=== PATIENT | female | born 1955 | race Caucasian/White ===

== ENCOUNTER 2016-10-17 20:20 | Emergency (ER) | payer MEDICARE, MEDICAID ==
[~2016-10-17] VITALS: Ht 154.9 cm; Wt 62.6 kg
[2016-10-17] MEDS ORDERED: RISP1TAB7 (21:02)
[2016-10-17] MEDS ORDERED: ARIP5TAB10 (21:02)
[2016-10-17] MEDS ORDERED: HYDROCODONE/APAP 5-325MG TABLET PO ONE (22:00)
[2016-10-17] MEDS ORDERED: HYDROCODONE/APAP 5-325MG TABLET ONE (22:12)
[2016-10-17] MEDS ORDERED: CEPHALEXIN MONOHYDRATE 500 MG CAPSULE PO ONE (22:30)
--- NOTE | 2016-10-17 22:40 | NUR ---
Patient discharged to home in stable conditon. Written and verbal after care instructions given. Patient verbalizes understanding of instructions.
[2016-10-17] MEDS ORDERED: CEPHALEXIN MONOHYDRATE 500 MG CAPSULE ONE (22:51)
== END 2016-10-17 22:43 | disposition home or self-care (01) ==
LOC: ER 20:20
DX: S61.215A Laceration without foreign body of left ring finger without damage to nail, initial encounter (principal); S61.213A Laceration without foreign body of left middle finger without damage to nail, initial encounter; M79.7 Fibromyalgia; Z88.1 Allergy status to other antibiotic agents; Z88.2 Allergy status to sulfonamides; F17.200 Nicotine dependence, unspecified, uncomplicated; W23.0XXA Caught, crushed, jammed, or pinched between moving objects, initial encounter; Y93.89 Activity, other specified; Y92.9 Unspecified place or not applicable; Y99.9 Unspecified external cause status
CPT/HCPCS: 12001; 73130; 99284; A4217; A4663

== ENCOUNTER 2016-10-23 07:36 | Emergency (ER) | payer MEDICARE, MEDICAID ==
[~2016-10-23] VITALS: Ht 154.9 cm; Wt 62.6 kg
[~2016-10-23 07:36] MED LIST: ARIP5TAB10; RISP1TAB7
--- NOTE | 2016-10-23 09:01 | NUR ---
Box Nailer contacted per TIEN, ETA 15 min.
--- NOTE | 2016-10-23 09:14 | NUR ---
hot iron worker at bedside.
[2016-10-23] MEDS: MORPHINE SULFATE 4 MG/1 ML DISP.SYRIN IM ONE (09:16)
[2016-10-23] MEDS: ONDANSETRON ODT 4 MG TAB.RAPDIS SL ONE (09:18)
[2016-10-23] MEDS: CLINDAMYCIN HCL 150 MG CAPSULE PO ONE (09:18)
[2016-10-23] MEDS: NEOMY/BACITRA/POLYMYXIN B OINT UD PACKET TP ONE (09:19)
[2016-10-23] MEDS ORDERED: ONDANSETRON ODT 4 MG TAB.RAPDIS ONE (09:22)
[2016-10-23] MEDS ORDERED: CLINDAMYCIN HCL 300 MG CAPSULE ONE (09:23)
[2016-10-23] MEDS ORDERED: MORPHINE SULFATE 4 MG/1 ML DISP.SYRIN ONE (09:23)
[2016-10-23] MEDS ORDERED: NEOMY/BACITRA/POLYMYXIN B OINT UD PACKET TP ONE (09:24)
[2016-10-23] MEDS: LORAZEPAM 0.5 MG TABLET PO ONE (10:42)
[2016-10-23] MEDS ORDERED: LORAZEPAM 0.5 MG TABLET ONE (10:54)
--- NOTE | 2016-10-23 11:49 | NUR ---
Patient given written and verbal discharge instructions. Patient verbalizes understanding of instructions. Patient is ambulatory with steady gait. Refuses offer of detention placement. Patient given list of available shelters in surrounding area. signal worker provided patient with information and referrals.
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
== END 2016-10-23 11:51 | disposition home or self-care (01) ==
LOC: ER 07:36
DX: S61.412A Laceration without foreign body of left hand, initial encounter (principal); L08.9 Local infection of the skin and subcutaneous tissue, unspecified; Z88.2 Allergy status to sulfonamides; Z88.1 Allergy status to other antibiotic agents; F17.200 Nicotine dependence, unspecified, uncomplicated; M54.5 Low back pain; G89.29 Other chronic pain; X58.XXXA Exposure to other specified factors, initial encounter; Y93.89 Activity, other specified; Y92.9 Unspecified place or not applicable; Y99.9 Unspecified external cause status; K21.9 Gastro-esophageal reflux disease without esophagitis
CPT/HCPCS: A4663; J2270; Q0162

== ENCOUNTER 2016-10-25 08:23 | Inpatient (IN) | payer MEDICARE, MEDICAID ==
[~2016-10-25] VITALS: Ht 167.6 cm; Wt 70.8 kg
[~2016-10-25 08:23] MED LIST changes: -RISP1TAB7
--- NOTE | 2016-10-25 08:43 | NUR ---
pt came to er requestinhg wheel chair at the door, co chronic back pain , uuncontrolled. pt said took own pain med at home. pt with slighly slurred speech and left hand weaker than right hand. pt did not realize this weakness and does not know when it started. pt also says that she has been home less latrely and cannot live like this any more and is requesting for some sort of placement.
[2016-10-25] MEDS ORDERED: CLON1TAB PO (08:49)
[2016-10-25] MEDS ORDERED: HYDR-3326 PO (08:49)
[2016-10-25] MEDS ORDERED: OMEP20TA20 PO (08:49)
[2016-10-25] MEDS ORDERED: HYDROCODONE/APAP 10-325 MG TABLET PO ONE (09:45)
[2016-10-25] MEDS ORDERED: HYDROCODONE/APAP 10-325 MG TABLET ONE (10:14)
[2016-10-25 10:37] LABS: BILIRUBIN,DIRECT 0.1 mg/dL (0.0-0.2); BILIRUBIN,TOTAL 0.3 mg/dL (0.2-1.0); CREATININE 0.6 mg/dL (0.6-1.3); POTASSIUM 4.1 mmol/L (3.5-5.1); TOTAL PROTEIN, SERUM 6.9 g/dL (6.4-8.2)
[2016-10-25 10:41] LABS: BASOPHILS % (AUTO) 0.5 % (0.0-2.0); EOSINOPHILS # (AUTO) 0.2 K/uL (0.0-0.7); EOSINOPHILS % (AUTO) 2.8 % (0.0-7.0); HEMATOCRIT 37.5 % (37-47); HEMOGLOBIN 12.3 G/DL (12.0-16.0); LYMPHOCYTES # (AUTO) 2.7 K/UL (0.8-4.8); LYMPHOCYTES % (AUTO) 35.3 % (20.5-51.5); MEAN CORPUSCULAR HEMOGLOBIN 27.8 UUG (27.0-31.0); MEAN CORPUSCULAR HGB CONC 33 g/dL (32.0-37.0); MEAN CORPUSCULAR VOLUME 84.9 FL (81.0-99.0); MONOCYTES # (AUTO) 0.3 K/UL (0.1-1.30); MONOCYTES % (AUTO) 3.9 % (0.0-11.0); NEUTROPHILS # (AUTO) 4.4 K/UL (1.8-8.9); NEUTROPHILS % (AUTO) 57.5 % (38.5-71.5); PLATELET COUNT (AUTO) 472 K/UL (150-450); RED BLOOD CELL COUNT(AUTO) 4.42 MIL/UL (4.2-5.4); WHITE BLOOD COUNT (AUTO) 7.6 K/UL (4.0-11.2)
[2016-10-25 12:20] LABS: *BILIRUBIN,URIN NEGATIVE (NEGATIVE); *BLOOD, URINE NEGATIVE (NEGATIVE); *CLARITY,URINE CLEAR (CLEAR); *COLOR,URINE LIGHT YELLOW (YELLOW); *KETONES,URINE NEGATIVE (NEGATIVE); *PROTEIN,URINE NEGATIVE (NEGATIVE); *UROBILINOGEN,URINE 0.2 E.U./dl (NORMAL); LEUKOCYTE ESTERASE ,URINE NEGATIVE (NEGATIVE); NITRITE, URINE NEGATIVE (NEGATIVE); UGLUCOSE NEGATIVE (NEGATIVE)
[2016-10-25 12:28] LABS: BACTERIA,URINE NONE SEEN /HPF (NONE SEEN); RBC,URINE 0-3 /HPF (0-3); SQUAMOUS EPITHELIAL CELL,UR FEW /HPF (NONE SEEN); WBC,URINE 0-3 /HPF (0-3)
--- NOTE | 2016-10-25 12:30 | NUR ---
pt transfered to floor in stable condition. pt requesting to talk to a social work lecturer for placement
[2016-10-25 13:30] VITALS: BP 106/81
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
--- NOTE | 2016-10-25 13:32 | NUR ---
PT REFUSING TO HAVE BELONGINGS GONE THROUGH
[2016-10-25] MEDS ORDERED: ZOLPIDEM 5 MG TABLET PO PRN (13:45)
[2016-10-25] MEDS ORDERED: MAGNESIUM HYDROXIDE 30 ML LIQUID UDC PO PRN (13:45)
[2016-10-25] MEDS ORDERED: Z GUARD REMEDY PASTE 57 GM TUBE TOP PRN ×2 (13:45)
[2016-10-25] MEDS ORDERED: ONDANSETRON 4 MG/2 ML VIAL IV PRN ×2 (13:45)
[2016-10-25] MEDS ORDERED: ACETAMINOPHEN 325 MG TABLET PO PRN ×2 (13:45)
[2016-10-25] MEDS: IV D5 1/2 NS 1000 ML 1,000 ML IV PRN (14:44)
[2016-10-25 15:11] VITALS: BP 110/78
--- NOTE | 2016-10-25 17:19 | NUR ---
TOOK PT DINNER TRAY, PT VERY GROGGY. CHECKED IV SITE AND IV WAS DISLODGED. PT STARTING SAYING SORRY OVER AND OVER AND STATED DID NOT KNOW HOW IT HAPPENED. NO BLEEDING NOTED, CLEANED SITE. WILL INSERT NEW IV
--- NOTE | 2016-10-25 17:45 | NUR ---
iv reinserted in right hand G22
[2016-10-25] MEDS: HYDROCODONE/APAP 5-325MG TABLET PO PRN (18:04)
[2016-10-25 20:00] VITALS: BP 106/53
[2016-10-26 05:04] VITALS: BP 118/31
[2016-10-26] MEDS: PANTOPRAZOLE SODIUM 40 MG TABLET.DR PO SCH (06:55)
[2016-10-26] MEDS: IV D5 1/2 NS 1000 ML 1,000 ML IV PRN ×2 (06:57→16:51)
[2016-10-26 07:24] LABS: BILIRUBIN,TOTAL 0.3 mg/dL (0.2-1.0); CREATININE 0.7 mg/dL (0.6-1.3); PHOSPHOROUS 3.1 mg/dL (2.5-4.9); THYROID STIMULATING HORMONE 0.542 mIU/mL (0.358-3.740); TOTAL PROTEIN, SERUM 6.6 g/dL (6.4-8.2)
[2016-10-26 07:25] LABS: BASOPHILS % (AUTO) 0.4 % (0.0-2.0); EOSINOPHILS # (AUTO) 0.2 K/uL (0.0-0.7); EOSINOPHILS % (AUTO) 3.7 % (0.0-7.0); HEMATOCRIT 34.6 % (37-47); HEMOGLOBIN 11.5 G/DL (12.0-16.0); LYMPHOCYTES # (AUTO) 1.9 K/UL (0.8-4.8); LYMPHOCYTES % (AUTO) 42.4 % (20.5-51.5); MEAN CORPUSCULAR HEMOGLOBIN 28.3 UUG (27.0-31.0); MEAN CORPUSCULAR HGB CONC 33 g/dL (32.0-37.0); MEAN CORPUSCULAR VOLUME 85.1 FL (81.0-99.0); MONOCYTES # (AUTO) 0.3 K/UL (0.1-1.30); MONOCYTES % (AUTO) 6.5 % (0.0-11.0); NEUTROPHILS # (AUTO) 2.2 K/UL (1.8-8.9); PLATELET COUNT (AUTO) 456 K/UL (150-450); RED BLOOD CELL COUNT(AUTO) 4.06 MIL/UL (4.2-5.4)
[2016-10-26 07:26] LABS: WHITE BLOOD COUNT (AUTO) 4.6 K/UL (4.0-11.2)
--- NOTE | 2016-10-26 07:43 | NUR ---
patient is awake and comfortable in bed with iv fluids infusion running. complaint of back and leg pain but tolerable. otherwise no other significant interventions seen at this time.
[2016-10-26] MEDS: HYDROCODONE/APAP 5-325MG TABLET PO PRN ×4 (08:07→21:06)
[2016-10-26 08:08] VITALS: BP 108/68
--- NOTE | 2016-10-26 08:10 | NUR ---
patient complaint of back pain 09/22 given [place] as ordered. rechecked bp 108/68 no dizziness. advised on other nursing interventions.
[2016-10-26 09:18] LABS: IRON, SERUM 40 ug/dL (50-175)
[2016-10-26 11:14] VITALS: BP 121/42
[2016-10-26] MEDS: LORAZEPAM 2 MG/1 ML VIAL IV PRN (14:50)
--- NOTE | 2016-10-26 14:56 | NUR ---
PATIENT IS AGITATED AND CRYING OVER ABOUT PERSONAL PROB, GIVEN IV PRN ATIVAN ORDERED.
[2016-10-26 15:28] VITALS: BP 137/77
--- NOTE | 2016-10-26 18:24 | NUR ---
PATIENT IS BECOMING AGITATED, CRYING FOR HIGHER DOSE OF ATIVAN IN PO. PAGED DOCTOR, WAITING FOR REPLY.
[2016-10-26 20:00] VITALS: BP 112/43
--- NOTE | 2016-10-26 20:10 | NUR ---
RECEIVED PT'S A/A/O X4,SITTING AT THE BEDSIDE AND STATED THAT"I REALLY HAVE ANXIETY SO LONG TIME AND I USED TO TAKE ATIVAN 1 MG,I HAVE BEEN WAITING SO LONG TIME.I DON'T WANT MY ANXIETY GETTING WORSE";EDUCATED TO PT AND KEPT COMFORT.CALLED WHO'S MARINE ELECTRICIAN TONIGHT AND LEFT THE MESSAGE WITH EXCHANGED SERVICE AT THIS TIME. AT 20:15 CALLED BACK,I DISCUSSED ABOUT PT'S CONDITION;NEW ORDER'S GIVEN AT THIS TIME:CARRIED IT OUT AND UPDATED THE PLAN OF CARE TO PT;PT VERBALIZED UNDERSTANDING AND COOPERATIVE AND STATED THAT"I FEEL BETTER".KEPT CALL-LIGHT WITHIN REACH.
[2016-10-26] MEDS ORDERED: LORAZEPAM 1 MG TABLET PO ONE ×2 (20:15)
--- NOTE | 2016-10-26 21:25 | NUR ---
PT AMBULATED IN THE HALLWAY FOR 10 MINUTES;STEADY GAIT;DENIED OF ANY DIZZINESS;PER PT STATED THAT"I NEED TO WALK BECAUSE IF I STAY TOO LONG TIME IN BED IT HURT MY BACK",PT WENT BACK TO BED,SNACK'S GIVEN TO PT REQUEST;PT TOLERATED WELL NOTED.MAINTAINED IVF ORDER.KEPT CALL-LIGHT WITHIN REACH.
[2016-10-26] MEDS: ZOLPIDEM 5 MG TABLET PO PRN (21:34)
[2016-10-27] MEDS: HYDROCODONE/APAP 5-325MG TABLET PO PRN ×3 (02:20→17:20)
--- NOTE | 2016-10-27 02:20 | NUR ---
Pt woke up and stated that "my back's killing me",a;so she stated that she wanted something to help her for bowel movement but refuse to get MOM,prune juice's offered to pt at this time,educated to pt if it doesn't help she should get MOM in the morning,pt agreed and tolerated well;[place] 1 tab was given to pt for pain;pt verbalized understanding and tolerated well noted.kept comfort.call-light within reach.
[2016-10-27 05:16] VITALS: BP 114/42
--- NOTE | 2016-10-27 06:00 | NUR ---
ASSISTED PT FOR AM CARE IN THE BATHROOM,PT HAD SMALL AMOUNT OF STOOL BUT UNABLE TO COLLECT FOR EXAM ORDER,PT STATED THAT SHE FELT BETTER.NO DISTRESS NOTED IN THE SHIFT.NO INFILTRATION AT THE IV SITE NOTED.PAIN'S CONTROLLED.NO ANXIETY ATTACK AT THIS TIME.KEPT CALL-LIGHT WITHIN REACH.PT'S ABLE TO PERFORM ADL'S BY HERSELF NOTED.NO NEURO-DEFICIT'S SEEN IN THE SHIFT.
[2016-10-27] MEDS: IV D5 1/2 NS 1000 ML 1,000 ML IV PRN ×2 (06:02→19:00)
[2016-10-27] MEDS: PANTOPRAZOLE SODIUM 40 MG TABLET.DR PO SCH (06:03)
[2016-10-27 06:41] LABS: BASOPHILS % (AUTO) 0.5 % (0.0-2.0); EOSINOPHILS # (AUTO) 0.2 K/uL (0.0-0.7); EOSINOPHILS % (AUTO) 3.1 % (0.0-7.0); HEMATOCRIT 34.3 % (37-47); HEMOGLOBIN 11.5 G/DL (12.0-16.0); LYMPHOCYTES # (AUTO) 2.5 K/UL (0.8-4.8); LYMPHOCYTES % (AUTO) 46.1 % (20.5-51.5); MEAN CORPUSCULAR HEMOGLOBIN 28.8 UUG (27.0-31.0); MEAN CORPUSCULAR HGB CONC 34 g/dL (32.0-37.0); MEAN CORPUSCULAR VOLUME 85.8 FL (81.0-99.0); MONOCYTES # (AUTO) 0.4 K/UL (0.1-1.30); MONOCYTES % (AUTO) 6.8 % (0.0-11.0); NEUTROPHILS # (AUTO) 2.4 K/UL (1.8-8.9); NEUTROPHILS % (AUTO) 43.5 % (38.5-71.5); PLATELET COUNT (AUTO) 455 K/UL (150-450); WHITE BLOOD COUNT (AUTO) 5.6 K/UL (4.0-11.2)
[2016-10-27 06:49] LABS: CREATININE 0.7 mg/dL (0.6-1.3); MAGNESIUM 1.8 mg/dL (1.8-2.4); PHOSPHOROUS 3.3 mg/dL (2.5-4.9); POTASSIUM 4.2 mmol/L (3.5-5.1)
[2016-10-27] MEDS: OXYCODONE/APAP 5-325 MG TABLET PO PRN ×2 (11:03→20:27)
[2016-10-27 11:22] VITALS: BP 107/78
[2016-10-27] MEDS: LORAZEPAM 2 MG/1 ML VIAL IV PRN ×2 (13:12→19:04)
[2016-10-27 16:08] VITALS: BP 103/54
[2016-10-27] MEDS: NICOTINE 21 MG/24HR PATCH TD SCH (17:08)
[2016-10-27] MEDS: MAGNESIUM HYDROXIDE 30 ML LIQUID UDC PO PRN (17:08)
--- NOTE | 2016-10-27 20:00 | NUR ---
PATIENT AWAKE IN BED. A/O X3. DENIES PAIN OR DISCOMFORT. NO RESP. DISTRESS NOTED. IVF INFUSING WELL TO RIGHT WRIST. VS WNL. CALL LIGHT IN REACH. ALL NEEDS ATTENDED. WILL CONTINUE TO MONITOR AND ASSESS.
[2016-10-27 20:45] VITALS: BP 139/58
[2016-10-27] MEDS: ZOLPIDEM 5 MG TABLET PO PRN (22:05)
[2016-10-28] MEDS: HYDROCODONE/APAP 5-325MG TABLET PO PRN ×2 (02:36→12:35)
[2016-10-28] MEDS: LORAZEPAM 2 MG/1 ML VIAL IV PRN (03:41)
--- NOTE | 2016-10-28 05:04 | NUR ---
PATIENT AWAKE IN ROOM. VERY ANXIOUS AND IRRITABLE. PATIENT WAS PREVIOUSLY GIVEN ATIVAN IV PER DRILL PUNCH OPERATOR. IV HEPLOCK NOTED TO RIGHT WRIST DISLODGED AND LEAKING. UNABLE TO INSERT AT THIS TIME. RN AT BEDSIDE TO ATTEMPT TO RESTART. PATIENT REFUSING AT THIS TIME. WILL CONTINUE TO MONITOR.
[2016-10-28 05:16] VITALS: BP 125/60
[2016-10-28] MEDS: PANTOPRAZOLE SODIUM 40 MG TABLET.DR PO SCH (06:19)
[2016-10-28 06:35] LABS: EOSINOPHILS # (AUTO) 0.2 K/uL (0.0-0.7); EOSINOPHILS % (AUTO) 3.6 % (0.0-7.0); HEMATOCRIT 33.6 % (37-47); HEMOGLOBIN 11.3 G/DL (12.0-16.0); LYMPHOCYTES # (AUTO) 2.4 K/UL (0.8-4.8); LYMPHOCYTES % (AUTO) 48.1 % (20.5-51.5); MEAN CORPUSCULAR HEMOGLOBIN 28.5 UUG (27.0-31.0); MEAN CORPUSCULAR HGB CONC 34 g/dL (32.0-37.0); MEAN CORPUSCULAR VOLUME 84.5 FL (81.0-99.0); MONOCYTES # (AUTO) 0.4 K/UL (0.1-1.30); MONOCYTES % (AUTO) 8.6 % (0.0-11.0); NEUTROPHILS # (AUTO) 1.9 K/UL (1.8-8.9); NEUTROPHILS % (AUTO) 38.7 % (38.5-71.5); PLATELET COUNT (AUTO) 394 K/UL (150-450); RED BLOOD CELL COUNT(AUTO) 3.98 MIL/UL (4.2-5.4); WHITE BLOOD COUNT (AUTO) 4.9 K/UL (4.0-11.2)
[2016-10-28 06:53] LABS: CREATININE 0.8 mg/dL (0.6-1.3); MAGNESIUM 2.1 mg/dL (1.8-2.4); PHOSPHOROUS 3.2 mg/dL (2.5-4.9); POTASSIUM 3.8 mmol/L (3.5-5.1)
--- NOTE | 2016-10-28 07:34 | NUR ---
RECEIVED PATIENT AWAKE IN THE ROOM WAITING FOR HER BREAKFAST. NO COMPLAINTS AT THIS TIME. WILL CHECK HER BACK LATER.
[2016-10-28] MEDS: MAGNESIUM HYDROXIDE 30 ML LIQUID UDC PO PRN (08:50)
[2016-10-28] MEDS: NICOTINE 21 MG/24HR PATCH TD SCH (08:51)
[2016-10-28] MEDS: OXYCODONE/APAP 5-325 MG TABLET PO PRN (08:51)
[2016-10-28 11:59] VITALS: BP 108/57
[2016-10-28] MEDS ORDERED: ESCI10TA PO (13:11)
--- NOTE | 2016-10-28 15:15 | NUR ---
pt requesting ativan, however pt refused to have iv reinserted. paged dr lake for one time order for po ativan.
--- NOTE | 2016-10-28 15:15 | NUR ---
Discharge Plan: Once patient is medically cleared patient will be discharged to [facility] [[address] [facility], [place] [address] room [address]]. The patient is aware and agreeable with the discharge plan. Pt will be transported via ambulance.
[2016-10-28] MEDS ORDERED: LORAZEPAM 0.5 MG TABLET PO ONE (15:30)
--- NOTE | 2016-10-28 15:35 | NUR ---
orders received for po ativan 0.5mg, will administer
[2016-10-28 15:46] VITALS: BP 110/65
--- NOTE | 2016-10-28 16:15 | NUR ---
discharge protocol followed. pt verbalized understanding. id band removed, pt does not have an iv. all belongings accounted for and sent with pt. pt left via gurney with ambulance staff
== END 2016-10-28 16:12 | DRG 552 ==
LOC: ER 08:23 → TELE 12:29 → MED 15:54
PROVIDERS: ADMIT Internal Medicine; ATTEND Internal Medicine
DX: M54.42 Lumbago with sciatica, left side (principal); I10 Essential (primary) hypertension; J44.9 Chronic obstructive pulmonary disease, unspecified; G89.29 Other chronic pain; M54.16 Radiculopathy, lumbar region; Z59.0 Homelessness; Z79.899 Other long term (current) drug therapy; Z87.891 Personal history of nicotine dependence; K21.9 Gastro-esophageal reflux disease without esophagitis; F41.8 Other specified anxiety disorders; Z87.440 Personal history of urinary (tract) infections; Z88.1 Allergy status to other antibiotic agents; Z88.2 Allergy status to sulfonamides; Z74.09 Other reduced mobility; S69.92XD Unspecified injury of left wrist, hand and finger(s), subsequent encounter; X58.XXXD Exposure to other specified factors, subsequent encounter
CPT/HCPCS: 36415; 70030-TC; 70450; 71010; 83550; 83605; 83735; 84100; 84443; 85025; 85730; 87040; 87086; 93005; 97116; 97530; A4663; J2060; J3490; J7042

== ENCOUNTER 2016-12-04 19:18 | Emergency (ER) | payer MEDICARE, MEDICAID ==
[~2016-12-04] VITALS: Ht 154.9 cm; Wt 61.2 kg
[~2016-12-04 19:18] MED LIST changes: -ARIP5TAB10; +CLON1TAB PO; +ESCI10TA PO; +HYDR-3326 PO; +OMEP20TA20 PO
--- NOTE | 2016-12-04 19:53 | NUR ---
Patient discharged to home in stable conditon. Written and verbal after care instructions given. Patient verbalizes understanding of instructions.
== END 2016-12-04 19:54 | disposition home or self-care (01) ==
LOC: ER 19:18
DX: Z76.0 Encounter for issue of repeat prescription (principal); M54.30 Sciatica, unspecified side; F13.20 Sedative, hypnotic or anxiolytic dependence, uncomplicated; F32.9 Major depressive disorder, single episode, unspecified; F17.200 Nicotine dependence, unspecified, uncomplicated; I10 Essential (primary) hypertension; K21.9 Gastro-esophageal reflux disease without esophagitis; M79.7 Fibromyalgia; Z79.899 Other long term (current) drug therapy; F41.9 Anxiety disorder, unspecified; Z87.01 Personal history of pneumonia (recurrent); Z87.440 Personal history of urinary (tract) infections; Z87.898 Personal history of other specified conditions; Z88.2 Allergy status to sulfonamides; Z88.8 Allergy status to other drugs, medicaments and biological substances
CPT/HCPCS: A4663

== ENCOUNTER 2017-03-19 10:06 | Emergency (ER) | payer MEDICAID, MEDICARE ==
[~2017-03-19] VITALS: Ht 154.9 cm; Wt 63.5 kg
--- NOTE | 2017-03-19 10:23 | NUR ---
PT IS IN ROOM #2B. DR KING EVALUATED THE PT.
[2017-03-19] MEDS ORDERED: ONDANSETRON ODT 4 MG TAB.RAPDIS SL ONE (10:30)
[2017-03-19] MEDS ORDERED: ACETAMINOPHEN ES 500 MG TABLET PO ONE (10:30)
[2017-03-19] MEDS ORDERED: ACETAMINOPHEN ES 500 MG TABLET ONE (10:55)
[2017-03-19] MEDS ORDERED: ONDANSETRON ODT 4 MG TAB.RAPDIS ONE (10:56)
--- NOTE | 2017-03-19 11:45 | NUR ---
GREIGE GOODS INSPECTOR WAS CALLED TO TALK TO THE PT. GREIGE GOODS INSPECTOR HAKAN EVALUATED THE PT. PT WAS SENT TO [facility]IA [facility]. NO S/S OF ACUTE DISTRESS AT THE TIME OF DISCHARGE. D/C INSTRUCTIONS GIVEN TO THE PT BY DR KING.
[2017-03-19 12:00] VITALS: BP 136/81
== END 2017-03-19 12:09 | disposition home or self-care (01) ==
LOC: ER 10:06
DX: S83.91XA Sprain of unspecified site of right knee, initial encounter (principal); G89.29 Other chronic pain; M54.5 Low back pain; G56.00 Carpal tunnel syndrome, unspecified upper limb; I10 Essential (primary) hypertension; K21.9 Gastro-esophageal reflux disease without esophagitis; Z59.0 Homelessness; M79.7 Fibromyalgia; F17.200 Nicotine dependence, unspecified, uncomplicated; Z88.1 Allergy status to other antibiotic agents; Z88.2 Allergy status to sulfonamides; V89.2XXA Person injured in unspecified motor-vehicle accident, traffic, initial encounter; Y93.89 Activity, other specified; Y92.410 Unspecified street and highway as the place of occurrence of the external cause; Y99.8 Other external cause status
CPT/HCPCS: 99283; A4663; Q0162

== ENCOUNTER 2017-04-17 14:32 | Emergency (ER) | payer MEDICARE ==
[~2017-04-17] VITALS: Ht 154.9 cm; Wt 59.0 kg
--- NOTE | 2017-04-17 14:50 | NUR ---
PT IS SEEN AND EXAMINED BY MD. CHIEF C/O LOW BACK PAIN AND RIGHT LEG PAIN. BOTH LEGS ARE SWOLLEN +2 PITTING EDEMA. AWAKE AND ORIENTEDX3. APPEARS ANXIOUS AND DEPRESSED.
--- NOTE | 2017-04-17 15:15 | NUR ---
NOTIFIED PILEDRIVER CARPENTER FOR EVALUATION OF LIVING SITUATION.
--- NOTE | 2017-04-17 16:30 | NUR ---
SEEN BY MANUFACTURING ENGINEERING MANAGER AND EVALUATION DONE. AWAITING FOR PT;S DECISION.
--- NOTE | 2017-04-17 16:44 | NUR ---
SW consult requested by ED RN Bernarda. SW arrived to ED and consulted with Dr. Anthony. Patient is known to this SW from previous ED visit last month (see SS notes in March ED admission record). SW met with patient, who was receptive to meeting with SW. Patient was in her assigned ED bed; reported that she came to the ED today for back and knee pain, and stated that she wants help with placement. Patient stated that she has been living on the streets since being at [facility] ED last month. SW asked about the use of the resources that SW had provided patient last month, and patient did not provide a clear answer about her usage of the resources. Patient is alert, oriented, responding to SW appropriately, however was dosing off throughout the interview. SW had to call patient's name several times in order for patient to wake up; patient reported that she does not sleep well due to being on the streets. SW screened for SI, and patient denied. Patient stated that she continues to take her meds, Celexa and Klonopin, for Depression and Anxiety. Patient reported that she does get some income, and eats 1-2 x day. Patient's behavior was appropriate, hygiene/grooming was fair. SW discussed different discharge options for patient, which included shelters, motel, or even a voluntary admission to MHU where she can be evaluated and work with [facility] SW for possible placement options. Patient requested time to think about her options. SW returned with Dr. Anthony to talk to patient and see which discharge plan she had decided on. Patient informed both this SILVIA and Dr. Anthony that she is declining all options and resources, and stated that she will just return to the streets. No further interventions needed at this time.
--- NOTE | 2017-04-17 17:00 | NUR ---
PT FALLEN SOUND ASLEEP. REFUSED TO STAY AT THE [facility] OR STAY TO BE ADMITTED IN [facility]. PREFERS TO BE DISCHARGED.
--- NOTE | 2017-04-17 18:45 | NUR ---
MD TALKED TO PT AND DISCHARGE INSTRUCTIONS GIVEN TO HER WITH GOOD UNDERSTANDING.
[2017-04-17 19:00] VITALS: BP 113/55
--- NOTE | 2017-04-17 19:00 | NUR ---
PT IS DISCHARGED. CONDITION IS STABLE.
== END 2017-04-17 19:00 | disposition home or self-care (01) ==
LOC: ER 14:33
DX: G89.29 Other chronic pain (principal); M54.5 Low back pain; I10 Essential (primary) hypertension; K21.9 Gastro-esophageal reflux disease without esophagitis; M79.7 Fibromyalgia; Z59.0 Homelessness; F17.200 Nicotine dependence, unspecified, uncomplicated; Z88.1 Allergy status to other antibiotic agents; Z88.2 Allergy status to sulfonamides
CPT/HCPCS: 99281; A4663

== ENCOUNTER 2017-04-18 12:07 | Inpatient (IN) | payer MEDICARE ==
[~2017-04-18] VITALS: Ht 154.9 cm; Wt 63.0 kg
[2017-04-18 13:10] LABS: BASOPHILS % (AUTO) 0.5 % (0.0-2.0); EOSINOPHILS # (AUTO) 0.2 K/uL (0.0-0.7); HEMOGLOBIN 10.4 g/dL (10.9-14.3); LYMPHOCYTES # (AUTO) 2.5 K/uL (20.0-40.0); LYMPHOCYTES % (AUTO) 27.9 % (20.5-51.5); MEAN CORPUSCULAR HEMOGLOBIN 28.6 uug (24.7-32.8); MEAN CORPUSCULAR HGB CONC 34 g/dL (32.3-35.6); MONOCYTES # (AUTO) 0.8 K/uL (2.0-10.0); MONOCYTES % (AUTO) 8.4 % (0.0-11.0); NEUTROPHILS # (AUTO) 5.5 K/uL (1.8-8.9); NEUTROPHILS % (AUTO) 61.2 % (38.5-71.5); PLATELET COUNT (AUTO) 293 K/uL (179-408); RED BLOOD CELL COUNT(AUTO) 3.64 MIL/uL (3.63-4.92)
[2017-04-18 13:19] LABS: CREATININE 0.7 mg/dL (0.6-1.3); POTASSIUM 3.6 mmol/L (3.5-5.1)
[2017-04-18 13:50] LABS: ACETAMINOPHEN 2.3 ug/mL (10-30); BILIRUBIN,DIRECT 0.1 mg/dL (0.0-0.2); BILIRUBIN,TOTAL 0.4 mg/dL (0.2-1.0); TOTAL PROTEIN, SERUM 6.8 g/dL (6.4-8.2)
[2017-04-18 15:24] LABS: *BILIRUBIN,URIN NEGATIVE (NEGATIVE); *BLOOD, URINE Trace-intact (NEGATIVE); *CLARITY,URINE SLIGHTLY CLOUDY (CLEAR); *COLOR,URINE YELLOW (YELLOW); *KETONES,URINE NEGATIVE (NEGATIVE); *PROTEIN,URINE NEGATIVE (NEGATIVE); *UROBILINOGEN,URINE 0.2 E.U./dl (NORMAL); LEUKOCYTE ESTERASE ,URINE NEGATIVE (NEGATIVE); NITRITE, URINE NEGATIVE (NEGATIVE); UGLUCOSE NEGATIVE (NEGATIVE)
[2017-04-18 15:26] LABS: *AMPHETAMINE, URINE NEGATIVE (NEGATIVE); *BARBITURATE, URINE NEGATIVE (NEGATIVE); *CANNABINOID, URINE NEGATIVE (NEGATIVE); *COCCAINE, URINE NEGATIVE (NEGATIVE); *OPIATE, URINE POSITIVE (NEGATIVE); *PHENCYCLIDINE SCREEN,URINE NEGATIVE (NEGATIVE)
[2017-04-18 15:50] LABS: BACTERIA,URINE NONE SEEN /HPF (NONE SEEN); RBC,URINE 0-3 /HPF (0-3); SQUAMOUS EPITHELIAL CELL,UR NONE SEEN /HPF (NONE SEEN); WBC,URINE 0-3 /HPF (0-3)
--- NOTE | 2017-04-18 17:02 | NUR ---
HOSPITAL DINNER PROVIDED FOR PT.
--- NOTE | 2017-04-18 17:18 | NUR ---
Note shelton in EDM - 04/18/17 at 1719 by BILL VINITA CAME TO TAKE THE PT HOME. PT SAYS FEELS BETTER. PT DENEIS ANY PAIN OR DIZZINESS OR NAUSEA AT THIS TIME.
--- NOTE | 2017-04-18 18:30 | NUR ---
TRANSFERED PT TO MHU IN STABLE CONDITION
[2017-04-18] MEDS ORDERED: MAGNESIUM HYDROXIDE 30 ML LIQUID UDC PO PRN (19:00)
[2017-04-18] MEDS ORDERED: MAG HYDROX/AL HYDROX/SIMETH 30 ML LIQUID UDC PO PRN (19:00)
[2017-04-18] MEDS ORDERED: ZOLPIDEM 5 MG TABLET PO PRN (22:00)
[2017-04-19] MEDS: LORAZEPAM 0.5 MG TABLET PO PRN ×2 (00:25→10:52)
[2017-04-19] MEDS ORDERED: HYDROCODONE/APAP 5-325MG TABLET ONE (00:40)
[2017-04-19] MEDS: HYDROCODONE/APAP 5-325MG TABLET PO PRN (00:55)
[2017-04-19] MEDS: ACETAMINOPHEN 325 MG TABLET PO PRN ×3 (06:00→23:33)
[2017-04-19 07:30] VITALS: BP 108/49
[2017-04-19] MEDS: NICOTINE 7 MG/24HR PATCH TD SCH (08:14)
[2017-04-19] MEDS: PANTOPRAZOLE SODIUM 40 MG TABLET.DR PO SCH (08:14)
[2017-04-19] MEDS ORDERED: TRAZODONE 50 MG TABLET PO PRN (12:45)
[2017-04-19] MEDS: CITALOPRAM 20 MG TABLET PO SCH (13:11)
[2017-04-19 15:41] VITALS: BP 126/59
[2017-04-19 19:40] VITALS: BP 111/47
--- NOTE | 2017-04-19 23:35 | NUR ---
GPS: PATIENT C/O HEADACHE. TYLENOL 650 MG PO GIVEN.
--- NOTE | 2017-04-20 00:35 | NUR ---
GPS: PATIENT STATED I AM FEELING BETTER. PRN FOR PAIN EFFECTIVE.
[2017-04-20] MEDS: PANTOPRAZOLE SODIUM 40 MG TABLET.DR PO SCH (06:15)
--- NOTE | 2017-04-20 06:31 | NUR ---
GPS: REMAIN UNCOOPERATIVE WITH STAFF. VERBALLY ABUSIVE TO STAFF. ATIVAN 1 MG PO GIVEN FOR ANXIETY. SLEPT 4 HRS THROUGH THE NIGHT. COMPLIANT WITH MEDICATIONS. CONTINUE PLAN OF CARE.
[2017-04-20 07:30] VITALS: BP 132/59
[2017-04-20] MEDS: NICOTINE 7 MG/24HR PATCH TD SCH (08:31)
[2017-04-20] MEDS: CITALOPRAM 20 MG TABLET PO SCH (08:31)
[2017-04-20] MEDS: HYDROXYZINE PAMOATE 25 MG CAPSULE PO PRN ×2 (08:45→20:28)
[2017-04-20] MEDS ORDERED: ZOLPIDEM 5 MG TABLET PO PRN (09:30)
[2017-04-20] MEDS: ACETAMINOPHEN 325 MG TABLET PO PRN (09:42)
[2017-04-20] MEDS: HYDROCODONE/APAP 5-325MG TABLET PO PRN ×2 (16:28→22:54)
[2017-04-20 20:16] VITALS: BP 118/64
--- NOTE | 2017-04-20 21:51 | NUR ---
PATIENT CALM AND COOPERATIVE UPON APPROACH. PATIENT WALKS WITH FWW. PATIENT COMPLAINT WITH MEDICATION. NO AGGRESSIVE OR COMBATIVE BEHAVIOR NOTED, WILL CONTINUE TO MONITOR. PATIENT DENIES PAIN AT THIS TIME, WILL CONTINUE TO MONITOR. PATIENT IN NO APPARENT DISTRESS WILL CONTINUE TO MONITOR.
[2017-04-21] MEDS: HYDROCODONE/APAP 5-325MG TABLET PO PRN ×3 (05:24→18:41)
[2017-04-21] MEDS: PANTOPRAZOLE SODIUM 40 MG TABLET.DR PO SCH (06:18)
[2017-04-21 07:30] VITALS: BP 144/69
[2017-04-21] MEDS: NICOTINE 7 MG/24HR PATCH TD SCH (09:10)
[2017-04-21] MEDS: CITALOPRAM 20 MG TABLET PO SCH (09:10)
[2017-04-21] MEDS: HYDROXYZINE PAMOATE 25 MG CAPSULE PO PRN ×2 (09:11→16:41)
--- NOTE | 2017-04-21 14:55 | NUR ---
Initial DC Plan: Patient is currently homeless and would like assistance finding placement. SW spoke with Harriet at [facility] [[place] [id number]; ] who stated patient has been accepted at their facility. SW will follow up with MD and patient to discuss most appropriate discharge plans. SW will form a safe and proper discharge.
--- NOTE | 2017-04-21 14:59 | NUR ---
Firearms Reporting: SILVIA submitted Mental Health Report to [employer] on 04/21.
[2017-04-21 16:39] VITALS: BP 137/55
[2017-04-21 20:00] VITALS: BP 155/75
--- NOTE | 2017-04-21 21:00 | NUR ---
RECEIVED PATIENT IN HER ROOM IN BED. SHE WAS NOTED AWAKE, A/O X 3. SHE IS ABLE TO AMBULATE WITH STEADY GAIT AID BY A FRONT WHEEL WALKER. SHE STATED THAT HER KNEE/LEG PAIN STARTED TO "GET BETTER." PATIENT WAS NOTED CALM AND PLEASANT, FAIR INSIGHT NOTED, BLUNTED AFFECT. NO SI/HI NOTED. SHE DENIES ANY THOUGHT TO HARM SELF. SHE WAS ABLE TO CONTRACT FOR SAFETY, ENCOURAGE TO VERBALIZED FEELINGS. WILL CONTINUE TO MONITOR CLOSELY.
[2017-04-22] MEDS: HYDROCODONE/APAP 5-325MG TABLET PO PRN ×3 (00:48→12:53)
[2017-04-22] MEDS: PANTOPRAZOLE SODIUM 40 MG TABLET.DR PO SCH (06:33)
[2017-04-22 08:00] VITALS: BP 134/67
[2017-04-22] MEDS: NICOTINE 7 MG/24HR PATCH TD SCH (08:43)
[2017-04-22] MEDS: CITALOPRAM 20 MG TABLET PO SCH (08:43)
[2017-04-22] MEDS: HYDROXYZINE PAMOATE 25 MG CAPSULE PO PRN (08:52)
[2017-04-22] MEDS: ACETAMINOPHEN 325 MG TABLET PO PRN (11:15)
--- NOTE | 2017-04-22 11:43 | NUR ---
DC Note: Patient will be discharged to [facility] [place] [address]; ] via ambulance today. SILVIA spoke with Harriet at [facility] to confirm discharge plans. Patient is aware and agreeable to discharge plans. Patient stated she does not want any family or friends contacted regarding discharge plans. Patient will follow up with Dr. Huffman ([place] Debeader) and Dr. Marie (Psychiatrist). Patient was provided smoking cessation referrals for [employer] 800-LUNGUSA and [employer] [phone].
[2017-04-22 16:00] VITALS: BP 134/56
--- NOTE | 2017-04-22 16:20 | NUR ---
1300 Called [facility] regarding patient will be discharged to their facility - spoke with Miss Michael rn banquet kitchen supervisor and reporte given regarding patient diagnod=sis, medications to continue upon hospital discharge- RN verbalized understanding. 1615. Picked up by ambulance and discharge to SNF.
== END 2017-04-22 16:15 | DRG 885 ==
LOC: ER 12:10 → GPS 17:28
PROVIDERS: ADMIT Psychiatry & Neurology Psychiatry; ATTEND Registered Nurse
DX: F33.2 Major depressive disorder, recurrent severe without psychotic features (principal); D63.8 Anemia in other chronic diseases classified elsewhere; F17.210 Nicotine dependence, cigarettes, uncomplicated; F19.10 Other psychoactive substance abuse, uncomplicated; S93.401A Sprain of unspecified ligament of right ankle, initial encounter; W18.39XA Other fall on same level, initial encounter; Y93.02 Activity, running; S93.402A Sprain of unspecified ligament of left ankle, initial encounter; G89.29 Other chronic pain; Z59.0 Homelessness; K21.9 Gastro-esophageal reflux disease without esophagitis; Z87.440 Personal history of urinary (tract) infections; Z87.01 Personal history of pneumonia (recurrent); M79.7 Fibromyalgia; F41.9 Anxiety disorder, unspecified; Y92.89 Other specified places as the place of occurrence of the external cause; Z98.51 Tubal ligation status; I10 Essential (primary) hypertension; M19.90 Unspecified osteoarthritis, unspecified site
CPT/HCPCS: 36415; 71045; 73560; 73600; 73610; 80307; 85025; 93005; 97116; 97530; A4663; A9150; G0480; G0480-TC